=== PATIENT | male | born 1970 | race Caucasian/White ===

== ENCOUNTER 2018-02-12 11:05 | Outpatient (CLI) | payer OTHER, SELFPAY ==
--- NOTE | 2018-02-12 11:15 | DI.REPORT_ITS ---
SYMPTOM/DIAGNOSIS: WRIST JOINT PAIN, RT, M25.531 RIGHT WRIST: No fracture or dislocation is seen. IMPRESSION: Negative right wrist.
== END 2018-02-12 11:06 ==
PROVIDERS: PCP Physician Assistant Medical; Visit Provider Physician Assistant Medical
DX: M25.531 Pain in right wrist (principal)
CPT/HCPCS: 73110

== ENCOUNTER 2018-09-19 16:07 | Emergency (ER) | payer MEDICAID, SELFPAY ==
[2018-09-19 16:15] VITALS: BP 134/80; PULSE 82; RESP 12; TEMP 36.9; O2SAT 97
[2018-09-19 17:10] VITALS: BP 134/80; PULSE 82; RESP 12; TEMP 36.9; O2SAT 97
--- NOTE | 2018-09-19 18:20 | ED.GENADUL_ITS ---
Discharge Plan Disposition Patient Disposition: HOME Condition: Stable Discharge Details Chief Complaint: Nk/Back Pain Clinical Impression: Contusion of head, Acute cervical myofascial strain Primary Care Provider: Philip Gonzalez V ED Provider: Arik Orr Home Meds and New Rx's Prescriptions: No Action No Known Home Meds RF: 0 Discharge Instructions Instructions: Cervical Strain (ED), Contusion in Adults (ED) Additional Instructions: 1. Drink plenty of fluids. 2. Continue all medications as prescribed. 3. Acetaminophen 1000mg every 4 hours (up to 5 time a day) and/or ibuprofen 600mg every 6 hours as needed for fever or pain. 4. Ice sore areas frequently. 5. Follow-up with your doctor as needed for persistent pain or for any progressive neurological symptoms. Return to the Emergency Department (ED) if your condition worsens, does not improve as expected, or for ANY other concerns. Specifically, return if you have new or uncontrolled pain, worsening fever, difficulty breathing, vomiting, or are unable to drink fluids. Discharge Data Discharge Date/Time-TO BE ENTERED AT DEPARTURE: 09/19/18 17:12 Medical Decision Making Referred for evaluation of persistent neck pain associated with isolated posterior head trauma from patient standing up and hitting his head on an immobi le object. Noted a crunching sensation of his neck after the event. Describes both the head and neck discomfort as improving. Had no loss of consciousness, no focal neurological deficits, or headache. Had been referred for radiographic imaging.. However, is concerned about physical because of the ED evaluation. I also have a low suspicion for clinically significant cervical injury given the mechanism described by the patient and his current exam. His injury happened now 5 hours prior to arrival and he has no progressive symptoms or any functional neurological deficits. Discharged with plan for outpatient follow-up with his PCP. Pt evaluated immediately prior to discharge with improved symptoms, normal vital signs, and tolerating PO. The patient feels appropriate for discharge home. Discussed clinical/diagnostic findings. Discharged with a clear plan for outpatient follow up. Given usual and customary return instructions prior to discharge. Medical Records Medical records reviewed: Yes I reviewed the patient's medical records. HPI 48-year-old gentleman with an unremarkable past medical history. Referred for physical therapy for further evaluation of head and cervical pain. So she will sustained an injury to his superior occiput and neck after standing up suddenly and hitting his head. His head pain has been improving. However, he also noted a crunching sensation in his neck and has had some mild persistent lower cervical pain which has been improving since onset. Denies significant headache, visual changes, focal extremity weakness, or difficulty with stance/gait. General Date/Time Provider Initiated Documentation: 09/19/18 16:52 . Related Data Home Medications Medication Instructions Recorded Confirmed Unknown [No Known Home Meds] 05/21/18 09/03/18 Allergies Allergy/AdvReac Type Severity Reaction Status Date / Time No Known Allergies Allergy Verified 09/19/18 16:17 General Stated Complaint: Nk/Back Pain ZENAIDA: 3 Review of Systems Review of Systems All systems are reviewed and are unremarkable except as noted in HPI and below: CONSTITUTIONAL: no fevers/chills, no weakness or change in appetite EYES: no change in vision HEENT: Posterior/occipital head pain. Mild lower midline cervical pain. No throat pain or difficulty swallowing; CARDIOVASCULAR: no chest pain, palpitations, leg swelling, or diaphoresis RESPIRATORY: no cough, dyspnea, wheezing GASTROINTESTINAL: no abdominal pain, melena, nausea/emesis GENITOURINARY: no dysuria, flank pain, MUSCULOSKELETAL: no pack pain, myalgias, arthralgias INTEGUMENTARY: no rash, no wounds NEUROLOGIC: Focal head pain. No generalized, focal weakness, difficulty with speech, numbness PSYCHIATRIC: no confusion, no anxiety HEME: no easy bruising or bleeding ALLERGIC: no urticaria Exam Narrative Exam Narrative: Nursing note and vital signs have been reviewed and noted. GENERAL: alert, active, no acute distress, well -hydrated, well-nourished HEENT: Superficial abrasions to superior occiput with minimal tenderness. No step-off, ecchymosis, swelling, or deformity., PERRLA, EOMI, conjunctiva clear, external ears/canals normal, nasal mucosa normal NECK: supple, full range of motion; mild mid lower cervical tenderness C5 through 6. CARDIOVASCULAR: nl pulses, no edema PULMONARY: nl effort, no audible wheezing or stridor ABDOMEN: non-distended EXTREMITY: normal muscle tone, all joints with FROM, no deformity NUERO: normal mentation, moving all extremities, normal stance and gait, no upper motor weakness PSYCH: alert and oriented SKIN: no new rashes or lesions Course Vital Signs Temperature 98.5 F 09/19/18 16:15 Pulse 82 09/19/18 16:15 Respiratory Rate 12 09/19/18 16:15 Blood Pressure 134/80 09/19/18 16:15 Pulse Oximetry 97 09/19/18 16:15 Temperature 98.5 F 09/19/18 17:10 Temperature Source Temporal Artery Scan 09/19/18 16:15 Pulse 82 09/19/18 17:10 Respiratory Rate 12 09/19/18 17:10 Blood Pressure 134/80 09/19/18 17:10 Blood Pressure Position Sitting 09/19/18 16:15 Pulse Oximetry 97 09/19/18 17:10 Oxygen Delivery Method Room Air 09/19/18 16:15 Oxygen Flow Rate 0 09/19/18 16:15 Pain Level 0 09/19/18 17:10
== END 2018-09-19 17:12 | disposition home or self-care (01) ==
PROVIDERS: Emergency Provider Emergency Medicine; PCP Physician Assistant Medical
DX: S00.03XA Contusion of scalp, initial encounter (principal); S16.1XXA Strain of muscle, fascia and tendon at neck level, initial encounter; W22.8XXA Striking against or struck by other objects, initial encounter
CPT/HCPCS: 99282; L0172

== ENCOUNTER 2019-08-26 08:39 | Outpatient (REF) | payer MEDICAID, SELFPAY ==
[2019-08-26 20:09] LABS: Abs Immature Grans 0.01 k/cumm (0.0-0.09); Absolute Basophil Count 0.03 k/cumm (0.0-0.2); Absolute Eosinophil Count 0.03 k/cumm (0.0-0.7); Absolute Lymphocyte Count 1.31 k/cumm (1.2-3.4); Absolute Monocyte Count 0.36 k/cumm (0.11-0.7); Absolute Neutrophil Count 1.98 k/cumm (1.2-6.7); Basophils % 0.8; Eosinophils % 0.8; HCT 43.5 % (40.0-50.0); HGB 14.5 g/dL (13.5-17.5); Immature Grans % 0.3 %; Lymphocytes % 35.2; Mean Corp. HGB Concentration 33.3 g/dL (32.0-36.0); Mean Corpuscular Hemoglobin 31.3 pg (27.0-33.0); Monocytes % 9.7; Neutrophils % 53.2; Platelet Count 184 x1000/uL (130-400); RBC 4.63 m/cumm (4.50-6.00); RBC Distribution Width 12.6 % (11.8-14.1); White Blood Cell Count 3.72 k/cumm (4.4-10.8)
[2019-08-26 20:42] LABS: Vitamin D 25 Total 21.3 ng/ml (30-100)
[2019-08-26 20:44] LABS: ALT 43 U/L (16-63); AST 24 U/L (15-37); Albumin 4.6 g/dL (3.4-5.0); Alkaline Phosphatase 66 U/L (46-116); Anion Gap 7.8 mmol/L (3-11); BUN 15 mg/dL (7-18); Bilirubin, Total 1.8 mg/dL (0.2-1.0); CO2 30.2 mmol/L (21.0-32.0); CREATININE 0.76 mg/dL (0.70-1.30); Calculated LDL 69 mg/dL (<100); Chloride 102 mmol/L (98-107); Cholesterol 112 mg/dL (<200); Glucose 85 mg/dL (74-106); HDL Cholesterol 34 mg/dL (40-60); Magnesium 2.2 mg/dL (1.8-2.4); Potassium 3.8 mmol/L (3.5-5.1); Sodium 140 mmol/L (136-145); TSH (W/Ref FT4) 2.44 uIU/mL (0.36-3.74); Total Protein 7.7 g/dL (6.4-8.2); Triglyceride 48 mg/dL (<150); Vitamin B12 356 pg/mL (193-986)
[2019-08-28 14:58] LABS: ANA Interpretation Negative (Negative)
[2019-08-29 15:59] LABS: Testosterone, Free 13.2 ng/dL (4.26-16.4); Testosterone, Total 693 ng/dL (240-950)
== END 2019-08-26 08:59 ==
LOC: NCHCN 08:39
PROVIDERS: PCP Physician Assistant Medical; Visit Provider Physician Assistant
DX: R20.2 Paresthesia of skin (principal); Z83.49 Family history of other endocrine, nutritional and metabolic diseases; Z83.2 Family history of diseases of the blood and blood-forming organs and certain disorders involving the immune mechanism; N52.9 Male erectile dysfunction, unspecified
CPT/HCPCS: 80053; 80061; 82306; 84402; 84403; 82607; 83735; 84443; 85025; 86038

== ENCOUNTER 2019-09-03 15:29 | Outpatient (REF) | payer MEDICAID, SELFPAY ==
[2019-09-05 11:03] LABS: Lyme Ab w Rflx to Lyme Confirm Negative (Negative)
[2019-09-06 15:28] LABS: Anaplasma phagocytophilum Negative (Negative); B. miyamotoi PCR Negative (Negative); Babesia divergens/MO-1 Negative (Negative); Babesia duncani Negative (Negative); Babesia microti Negative (Negative); Ehrlichia chaffeensis Negative (Negative); Ehrlichia ewingii/canis Negative (Negative); Ehrlichia muris eauclairensis Negative (Negative)
== END 2019-09-03 15:49 ==
LOC: NCHCN 15:29
PROVIDERS: PCP Physician Assistant Medical; Visit Provider Physician Assistant
DX: R20.0 Anesthesia of skin (principal)
CPT/HCPCS: 87798; 86618